=== PATIENT | female | born 1990 | race Caucasian/White ===

== ENCOUNTER 2016-08-13 10:42 | Inpatient (IN) | payer OTHER ==
--- OUTSIDE RECORDS SUMMARY | 2016-08-13 10:46 | XMS REPORT | Continuity of Care Document ---
:1990 Author Organization [facility] ([facility]) Address [address] [place] [address] Phone [phone] Care Team Providers Name Role Phone Yasmin Manzano Primary Care Provider [phone] Source Comments This disclosure is being made pursuant to the Care Everywhere program, applicable federal and state laws, and may not contain all informaitonavailable regarding this patient.[facility] ([facility]) Active Allergies and Adverse Reactions No Known Allergies Current Medications Prescription Sig. Disp. Refills Start Date End Date Status cholecalciferol (VITAMIN Take 1 Cap by 100 Cap 11 06/24/2013 Active D3) 2,000 unit capsule mouth daily. 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 RF+, ESR elevated, +parvovirus B19 IgM & IgG (negative/normal CCP, FAUSTO, Hep C, Hep B). Initial concern for early RA, but RF elevation likely due toviral infection. Rx history: Prednisone (low dose) 06/16/2013 - . Asthma in adult 06/24/2013 Overview: Exercise induced, also seasonal. Uses inhaler prn Recent conversion of TB skin test 06/24/2013 Vitamin D deficiency 06/24/2013 Currently Estimated Date of Delivery Comments Yes 08/16/2016 Based on Last Menstrual Period Social History Tobacco Use Types Packs/Day Years Used Date Never Smoker Smokeless Tobacco: Never Used Alcohol Use Drinks/Week oz/Week Comments No Last Filed Vital Signs Vital Sign Reading Time Taken Blood Pressure 132/61 04/15/2016 9:56 AM [employer] Pulse 88 04/15/2016 9:56 AM [employer] Temperature 36.7 C (98.1 F) 04/15/2016 9:56 AM [employer] C[employer] Respiratory Rate - - Height 1.651 m (5' 5") 04/15/2016 9:56 AM [employer] C[employer]OD[employer] Weight 108.65 kg (239 lb 8.5 oz) 04/15/2016 9:56 AM HEAVY D[employer] CUSTODIAN Body Mass Index 39.86 04/15/2016 9:56 AM [employer] CUSTODIAN Oxygen Saturation - - Plan of Care Health Maintenance Due Date Last Done Comments Hepatitis B Vaccine (1 of 3 - Primary Series) 1990 HPV Vaccine (1 of 3 - Female/Unknown 3 Dose Series) 2001 Tdap Vaccine 2001 Cervical Cancer Screening 02/25/2008 Lipid Disorder Screening 02/25/2008 MMR Vaccine 02/25/2008 Td Vaccine 02/25/2008 Varicella Vaccine (1 of 2 - Adult - No Evidence of 02/25/2008 Immunity) Pneumococcal Vaccine (1 of 1 - PPSV23) 2009 Influenza Vaccine: Seasonal (#1) 12/24/2015 Results from Last 3 Months Not on file
--- OUTSIDE RECORDS SUMMARY | 2016-08-13 13:10 | XMS REPORT | Continuity of Care Document ---
:1990 Author Organization [facility] ([facility]) Address [address] [place] [address] Phone [phone] Care Team Providers Name Role Phone Yasmin Manzano Primary Care Provider [phone] Source Comments This disclosure is being made pursuant to the Care Everywhere program, applicable federal and state laws, and may not contain all informaitonavailable regarding this patient.[facility] ([facility]) Active Allergies and Adverse Reactions No [...] Taken Blood Pressure 132/61 04/15/2016 9:56 AM [facility] Pulse 88 04/15/2016 9:56 AM [facility] Temperature 36.7 C (98.1 F) 04/15/2016 9:56 AM [facility] Respiratory Rate - - Height 1.651 m (5' 5") 04/15/2016 9:56 AM [facility] Weight 108.65 kg (239 lb 8.5 oz) 04/15/2016 9:56 AM [facility] Body Mass Index 39.86 04/15/2016 9:56 AM [facility] Oxygen Saturation - - Plan of Care [...]
[2016-08-13] MEDS ORDERED: OXYTOCIN/DEXTROSE 5%-WATER 30 UNITS/500 ML BAG IV ONE ×2 (13:25→21:08)
[2016-08-13] MEDS ORDERED: LIDOCAINE HCL 50 ML VIAL PERI PRN (13:25)
[2016-08-13] MEDS: RINGERS SOLUTION,LACTATED 1,000 ML IV PRN ×2 (13:30→16:44)
[2016-08-13 13:50] LABS: Hematocrit 34.1 % (37.0-47.0); Hemoglobin 11.1 gm/dL (12.5-16.0); Mean Corpuscular Hemoglobin 28.3 pg (27-31); Mean Corpuscular Hgb Conc 32.6 g/dl (32-36); Mean Platelet Volume 10.8 fl (6.0-9.5); Neutrophil # 7.6 K/mm3 (1.3-6.0); Neutrophil % 78.5 % (42-75.0); Platelet Count 216 K/mm3 (150-450); Red Blood Count 3.92 M/mm3 (4.2-5.4); Red Cell Distribution Width 13.8 % (11.5-14.0); White Blood Count 9.7 K/mm3 (4.0-10.5)
[2016-08-13] MEDS ORDERED: BUPIVACAINE HCL/0.9 % NACL/PF 250 ML EP PRN (16:59)
[2016-08-13] MEDS ORDERED: fentaNYL CITRATE/PF 50 MCG/ML AMPUL IT SCH (17:00)
--- NOTE | 2016-08-13 17:05 | OR ---
Anesthesia Pre Procedure Eval Date of Service: 08/13/16 Pre Procedure Evaluation: Anesthesia Pre Procedure Evaluation Heart Rate:73 Blood Pressure:141/87 Termperature:36.6 Respiratory Rate:18 SaO2:99 DATE: 08/13/2016 TIME: 1700 INDICATIONS: Active labor, labor pain PAST MEDICAL HISTORY: Altered for a patient in active labor requesting labor analgesia EXAM: Heart regular; lungs clear ASSESSMENT OF MEDICAL STATUS: Appropriate candidate for labor analgesia PLANNED PROCEDURE: Combination spinal epidural for labor analgesia Home Medications: HOME MEDICATIONS Levothyroxine Sodium [Synthroid] 50 mcg PO DAILY 08/13/16 [Last Taken Unknown] Vit#96/Ferrous Fum/FA [ S] 1 tab PO DAILY 08/13/16 [Last Taken Unknown]
--- NOTE | 2016-08-13 17:33 | OR ---
Anesthesia Procedure Note - Anesthesia Procedure Note Date of Service: 08/13/16 Narrative: 08/13/16 17:31 ANESTHESIA PROCEDURE NOTE Date of Procedure: 08/13/2016 Time of procedure: 1700. Performed by: ANNA Hayes CRNA, MSN Preventive Medicine Specialist: Shalini Aviles RN. Preprocedure diagnosis: Active labor, labor pain. Post procedure diagnosis: Same. Procedure: Labor Epidural Placement L3 4. Indications: Labor pain. Findings: See below. Details of the procedure: The patient was placed on the side of the bed in sitting position. The patient was prepped with DuraPrep and draped in a sterile fashion. Lidocaine 1% was infiltrated to the skin and subcutaneous tissues at the level of the L3 4 interspace. The epidural space was identified using a 18-gauge Tuohy needle with [id number] technique. Fentanyl 20 g was given intrathecally the intrathecal needle was then removed and the epidural catheter was threaded approximately 4 cm, the epidural needle was then removed, and after careful aspiration 3 mL of 1.5% lidocaine with 1-200,000 epinephrine was injected without change in maternal heart rate or sensorium. The catheter was then taped in place. EBL: Minimal. Fluids: N/A. Specimen: N/A. Post procedure condition: The patient tolerated the procedure well with good relief. No complications were noted. Thank you for this consultation. Earl Purcell CRNA, ARNP, MSN
--- NOTE | 2016-08-13 18:17 | PN ---
Subjective - Date and Time Seen Date: 08/13/16 Subjective Narrative: labor note: 26 yo, CF, at 39.4 weeks. admitted in labor this morning. dilated to 2-3 cm at admission. GBS negative. pitocin started for augmentation and currently at 6 mu/min received epidural at 17:30. Cervix: 5 cm, 80% and -2 (17:55) FHR: reassuring. [place]: q2 min Plan: continued pitocin as tolerated. Hattie Velasquez MD Objective - Vitals Vitals: Last Vital Signs Temp 36.8 C 08/13/16 18:04 Pulse 82 08/13/16 18:04 Resp 16 08/13/16 18:04 BP 141/79 08/13/16 18:04 Pulse Ox 98 08/13/16 18:04 - Abnormal Lab Findings Abnormal Lab Findings: Abnormal Lab Results 08/13/16 Range/Units 13:50 RBC 3.92 L (4.2-5.4) M/mm3 Hgb 11.1 L (12.5-16.0) gm/dL Hct 34.1 L (37.0-47.0) % MPV 10.8 H (6.0-9.5) fl Neutrophils % 78.5 H (42-75.0) % Lymphocytes % 15.9 L (20-51) % Neutrophils # 7.6 H (1.3-6.0) K/mm3
[2016-08-13] MEDS ORDERED: HYDROCORTISONE 30 APPL TUBE TP PRN (21:08)
[2016-08-13] MEDS ORDERED: diphenhydrAMINE HCL 25 MG CAPSULE PO PRN (21:08)
[2016-08-13] MEDS ORDERED: SENNOSIDES 8.6 MG TABLET PO PRN (21:08)
[2016-08-13] MEDS ORDERED: ACETAMINOPHEN 325 MG TABLET PO PRN (21:08)
[2016-08-13] MEDS ORDERED: BENZOCAINE/MENTHOL 81 SPRAY CAN TP PRN (21:08)
[2016-08-13] MEDS ORDERED: GLYCERIN/WITCH HAZEL LEAF 40 APPL BOX TP PRN (21:08)
[2016-08-13] MEDS ORDERED: BISACODYL 10 MG SUPP.RECT RC PRN (21:08)
--- NOTE | 2016-08-13 21:08 | OR ---
Operative Report - Dictated Report Narrative: Spontaneous Vaginal Delivery Note: 26 yo, CF, at 39.4 weeks, admitted in labor this morning. Dilated to 2- 3 cm at admission. GBS was negative. Pitocin started for augmentation. Received epidural at 5 cm. SROM at 6 cm with moderate clear fluid and progressed to complete within one hour without complications. The perineum cleaned with betadine. Pushed with contractions and descent. Head delivered in direct OP over the perineum. No nuchal cord noted. The anterior shoulder delivered, followed by the posterior shoulder and the rest of the baby without difficulty. Baby cried at perineum. Cord was clamped, and cut by the father of baby. Baby placed on maternal abdomen for drying and care by the nursing. Cord blood was obtained. Placenta delivered intact with 3 vessel cord. Pitocin drip started after placenta delivered. Exam of the perineum, vagina and cervix revealed a tiny laceration in the right labia. No repair needed. Fundus was massaged and firm. Bleeding was minimal. Mother and baby tolerated the delivery well. EBL 150 ml. : female,3098 grams, 6 lbs and 13.2 oz. 9/9. Time of delivery: 20: 40. Hattie Velasquez MD History for Definition: * The number of deliveries resulting in a live the patient experienced prior to current hospitalization * The previous delivery of live twins or any live multiple gestation is considered one live event. *If primagravida or nulliparous is documented select zero for the number of previous live births. Live Events: 2
[2016-08-13] MEDS: IBUPROFEN 800 MG TABLET PO PRN (22:04)
[2016-08-13] MEDS: HYDROcodone/ACETAMINOPHEN 1 EACH TABLET PO PRN (22:05)
[2016-08-14] MEDS: IBUPROFEN 800 MG TABLET PO PRN ×3 (05:14→19:41)
[2016-08-14] MEDS: HYDROcodone/ACETAMINOPHEN 1 EACH TABLET PO PRN ×3 (05:14→19:42)
[2016-08-14] MEDS: DOCUSATE SODIUM 100 MG CAPSULE PO SCH ×2 (09:53→20:20)
--- NOTE | 2016-08-14 12:22 | PN ---
Subjective - Date and Time Seen Date: 08/14/16 Subjective Narrative: PPD#1, s/p doing well. bottle feeding normal lochia. ambulating well. Objective - Vitals Vitals: Last Vital Signs Temp 36.2 C L 08/14/16 11:19 Pulse 76 08/14/16 11:19 Resp 18 08/14/16 11:19 BP 130/72 08/14/16 11:19 Pulse Ox 100 08/14/16 11:19 - Abnormal Lab Findings Abnormal Lab Findings: Abnormal Lab Results 08/13/16 Range/Units 13:50 RBC 3.92 L (4.2-5.4) M/mm3 Hgb 11.1 L (12.5-16.0) gm/dL Hct 34.1 L (37.0-47.0) % MPV 10.8 H (6.0-9.5) fl Neutrophils % 78.5 H (42-75.0) % Lymphocytes % 15.9 L (20-51) % Neutrophils # 7.6 H (1.3-6.0) K/mm3 - Exam Constitutional: Present: Alert, Oriented x3, Cooperative Respiratory: Present: no respiratory distress Cardiovascular/Chest: Present: normal peripheral pulses Abdomen: Present: soft, nontender, nondistended, other - fundus firm Extremity: Present: normal range of motion, non-tender, no pedal edema, no calf tenderness Skin Exam: Present: normal color, warm/dry, no cyanosis Eye contact: Present: cooperative, good eye contact, normal speech Cauti Physician Documentation - Urinary Catheter Management Urethral (Dalal) Date of Insertion: 08/13/16 Date of Removal: 08/13/16 Time of Removal: 20:34 Assessment/Plan Plan Narrative: A: day 1, s/p , stable and well. Plan: routine care. ambulation encouraged. Hattie Velasquez MD
[2016-08-15] MEDS: HYDROcodone/ACETAMINOPHEN 1 EACH TABLET PO PRN (01:46)
[2016-08-15] MEDS: IBUPROFEN 800 MG TABLET PO PRN (01:49)
[2016-08-15 07:57] VITALS: BP 149/70
[2016-08-15] MEDS ORDERED: MEDROXYPROGESTERONE ACET 150 MG/ML SYRG IM PRN (08:17)
--- NOTE | 2016-08-15 12:09 | PN ---
Subjective - Date and Time Seen Date: 08/15/16 Subjective Narrative: day 2, s/p doing well. BP slightly high this morning. denies symptoms. normal lochia. Objective - Vitals Vitals: Last Vital Signs Temp 36.5 C 08/15/16 07:52 Pulse 78 08/15/16 07:52 Resp 18 08/15/16 07:52 BP 149/70 08/15/16 07:52 Pulse Ox 100 08/15/16 07:52 - Exam Constitutional: Present: Alert, Oriented x3, Cooperative Respiratory: Present: no respiratory distress Cardiovascular/Chest: Present: normal peripheral pulses Abdomen: Present: soft, nontender, nondistended, other - fundus firm at umbilicus Extremity: Present: normal range of motion, no pedal edema, no calf tenderness Skin Exam: Present: normal color, warm/dry, no cyanosis Eye contact: Present: cooperative, good eye contact, normal speech Cauti Physician Documentation - Urinary Catheter Management Urethral (Dalal) Date of Insertion: 08/13/16 Date of Removal: 08/13/16 Time of Removal: 20:34 Assessment/Plan Plan Narrative: A: PPD#2, s/p stable and well. Plan: will discharge home today. Hattie Velasquez MD
== END 2016-08-15 10:25 | disposition home or self-care (01) | DRG 775 ==
LOC: OBCLINIC 10:42 → OB 13:05
PROVIDERS: ADMIT Obstetrics & Gynecology; ATTEND Obstetrics & Gynecology
PROC: 10E0XZZ Delivery of Products of Conception, External Approach (ICD-10-PCS; principal; 2016-08-13)
PROC: 4A1HXCZ Monitoring of Products of Conception, Cardiac Rate, External Approach (ICD-10-PCS; 2016-08-13)
PROC: 3E0S3CZ (ICD-10-PCS; 2016-08-13)
DX: O99.284 Endocrine, nutritional and metabolic diseases complicating childbirth (principal); E03.9 Hypothyroidism, unspecified; F41.9 Anxiety disorder, unspecified; Z3A.39 39 weeks gestation of pregnancy; Z37.0 Single live birth